=== PATIENT | female | born 1990 | race Caucasian/White ===

== ENCOUNTER 2020-01-01 12:56 | Emergency (ER) | payer OTHER, SELFPAY ==
[2020-01-01 13:08] VITALS: BP 158/92; PULSE 93; RESP 20; TEMP 36.6; O2SAT 100
--- NOTE | 2020-01-01 13:14 | ED.URI ---
HPI - URI/Sore Throat General Chief Complaint: Upper Respiratory Infection Stated Complaint: sore throat Time Seen by Provider: 01/01/20 12:57 Source: patient and RN notes reviewed Mode of arrival: ambulatory Limitations: clinical condition History of Present Illness HPI Narrative: The patient, who is a non-smoker/nondrinker dental tech, presents with sore throat. Patient states her child was treated symptomatically for pharyngitis with antibiotics recently; she now has a 2-day history of sore scratchy throat and rare cough. No fever measured, earache, loss of taste/smell, recent travel, wheeze/sneeze, N/V/D/dehydration; she is taking care of, patients have been released Related Data Allergies Allergy/AdvReac Type Severity Reaction Status Date / Time No Known Allergies Allergy Verified 01/01/20 13:01 Review of Systems Review of Systems: Narrative: The patient has been informed that they may have pre-hypertension or Hypertension based on a BP reading in the department. I recommend that the patient call the primary care provider listed on their discharge instructions or a physician of their choice this week to arrange follow up for further evaluation of possible pre-hypertension or Hypertension General/Constitutional: No weight loss,fever Eyes: N0: Redness,discharge Ears/Nose/Throat: No: Epistaxis,ear discharge Respiratory: Denies: Hemoptysis Gastrointestinal: No Vomiting, Bleeding-rectal Skin: No Lumps, eruption Neurologic: No Focal Weakness,Sz Hematologic: Denies: Petechiae/Purpura Psychiatric: No: Suicida ideationl All Other Systems: Reviewed and Negative PMFSH Social History Social History Gender identity (if verbalized by the patient): Female Comments At time of signature, agree with nursing past medical, surgical, social and family history. There is no relevant family history pertinent to the presenting complaint Exam Narrative: Exam Narrative: General Appearance: Well appearing, Well nourished EYE: PERRLA, Conjunctiva clear Ears: Auditory canal normal, TM normal Nose: Rhinorrhea, Mucousal erythema Mouth/Throat: MM moist, Uvula midline, Pharyngeal erythema Neck: Supple, No adenopathy Respiratory: No respiratory distress, Breath sounds equal, Clear to auscultation Cardiovascular: RRR, No JVD Musculoskeletal: Non tender, Normal strength Skin: Warm, Dry Neurological: A&O x3, CN II-XII intact Psychiatric: Normal mood, Normal affect Course Vital Signs Vital signs: Vital Signs Temperature 98 F 01/01/20 13:08 Pulse Rate 93 01/01/20 13:08 Respiratory Rate 20 01/01/20 13:08 Blood Pressure 158/92 H 01/01/20 13:08 Pulse Oximetry 100 01/01/20 13:08 Temperature 98 F 01/01/20 13:08 Pulse Rate 93 01/01/20 13:08 Respiratory Rate 20 01/01/20 13:08 Blood Pressure 158/92 H 01/01/20 13:08 Pulse Oximetry 100 01/01/20 13:08 MDM - URI/Sore Throat Lab Data Labs: Strep Screen Presumptive Negative *(Reference Range: Negative)* Discharge Plan Discharge Clinical Impression: Pharyngitis Qualifiers: Pharyngitis/tonsillitis etiology: unspecified etiology Qualified Code(s): J02.9 - Acute pharyngitis, unspecified Patient Disposition: Home, Self-Care Condition: Stable Instructions: Antibiotic Form Additional Instructions: Get COVID test tomorrow as prescribed You may return to work after 72 hours of your last fever [without fever meds] AND your symptoms have improved Prescriptions: New azithromycin 250 mg tablet See Rx Instructions .ROUTE .COMPLEX Qty: 6 RF: 0 Lidocaine Viscous 2 % solution 5 ml MUCOUS MEM QID PRN (Reason: pain) Qty: 100 RF: 0 Interventions: Discharge Disposition Last Done: 01/01/20 13:21 Follow-up/Referrals: UNKNOWN,DOCTOR [Primary Care Provider] - Discharge Date/Time: 01/01/20 13:29
--- NOTE | 2020-01-04 13:22 | PC.NURSE ---
Patient notified that Covid test was negative and that Strep culture was negative.
== END 2020-01-01 13:29 | disposition home or self-care (01) ==
PROVIDERS: Emergency Provider Emergency Medicine
DX: J02.9 Acute pharyngitis, unspecified (principal)
CPT/HCPCS: 87081; 87880; 99213; G0463

== ENCOUNTER 2021-06-28 08:01 | Outpatient (CLI) | payer BC, SELFPAY ==
--- NOTE | ~2021-06-28 | US_ITS ---
EXAMINATION: US abdomen complete EXAM DATE: 06/28/2021 08:37 INDICATION: periumbilical abd pain; bloating, TECHNIQUE: Multiple grayscale and Doppler images of the complete abdomen were obtained (by a technolo gist who performed the scan) and subsequently reviewed. There is no prior study for comparison. FINDINGS: The abdominal aorta is normal in caliber. Visualized portion IVC is patent. The pancreatic head a nd body are normal in appearance. The pancreatic tail is not visualized. There is echogenic liver parenchyma with poor penetration, hepatic steatosis. There are no focal jose a er lesions identified. There is no evidence of intrahepatic biliary duct dilation. Portal venous f low was seen in the hepatopedal, normal direction and has normal Doppler waveform. Common bile duct measures 4 mm, which is normal. The gallbladder wall is normal in thickness, with ex pected amount of distention. No sonographic evidence of pericholecystic fluid. There is no cholelit hiases. Technologist performing exam reports patient did not demonstrate sonographic Milan's sign. Please note that this sign is less reliable in patients who have received pain medication. Right kidney: There is normal contour and echogenicity. It measures 12.2 x 4.0 x 5.4 centimeters. There are no focal renal lesions identified. There is no hydronephrosis. Left kidney: There is normal contour and echogenicity. It measures 12.9 x 4.4 x 5.3 centimeters. T here are no focal renal lesions identified. There is no hydronephrosis. The spleen measures 12.4 centimeters and is morphologically normal. IMPRESSION: 1. Hepatic steatosis. Reviewed, dictated and finalized at location A. FIC REPORTER IMPRESSION: 1. Hepatic steatosis.
== END 2021-06-28 08:02 | disposition home or self-care (01) ==
LOC: ANHIMG 08:04
DX: R10.33 Periumbilical pain (principal); R14.0 Abdominal distension (gaseous); K76.0 Fatty (change of) liver, not elsewhere classified
CPT/HCPCS: 76700

== ENCOUNTER 2022-05-08 13:39 | Emergency (ER) | payer SELFPAY ==
[2022-05-08 13:55] VITALS: BP 136/97; PULSE 113; RESP 16; TEMP 36.9; O2SAT 100
--- NOTE | 2022-05-08 14:42 | ED.URI ---
HPI - URI/Sore Throat General Chief Complaint: Upper Respiratory Infection Stated Complaint: sore throat, SOB, productive cough, congestion Time Seen by Provider: 05/08/22 14:00 Source: patient Mode of arrival: ambulatory Limitations: no limitations History of Present Illness HPI Narrative: 31-year-old female presents with complaint of nasal congestion, sore throat, cough, fatigue for 4 days. Was seen at another urgent care with symptoms 1st started and had a negative influenza, strep and COVID test. Is concerned that swabs were wrong and she was tested to soon. Would like swabbed again. Afebrile. Taking [id number]-[id number] medications to treat her symptoms. Denies chest pain and shortness of breath. No nausea vomiting diarrhea. All systems reviewed and negative except as noted above. Related Data Allergies Allergy/AdvReac Type Severity Reaction Status Date / Time No Known Allergies Allergy Verified 05/08/22 13:54 Review of Systems Review of Systems: CONSTITUTIONAL: Denies fever, chills, or sweats. EYES: Denies visual changes, redness, or discharge. ENT: Reports rhinorrhea, congestion, sore throat,. Denies otalgia. CARDIOVASCULAR: Denies chest pain, palpitations, or edema. RESPIRATORY: Report cough. Denies dyspnea. GASTROINTESTINAL: Denies abdominal pain, nausea, vomiting, or diarrhea. GENITOURINARY: Denies dysuria or hematuria. SKIN: Denies rash or itching. MUSCULOSKELETAL: Denies back pain, joint pain, or myalgia. NEUROLOGIC: Denies headache, numbness, or weakness. PSYCHIATRIC: Denies anxiety or depression. All other systems reviewed are negative, except as documented in HPI. PMFSH Social History Social History Gender identity (if verbalized by the patient): Female Comments At time of signature, agree with nursing past medical, surgical, social and family history. There is no relevant family history pertinent to the presenting complaint. Exam Narrative: GENERAL: This is a well-nourished, well-developed patient, in no apparent distress. HEAD: normocephalic, atraumatic. EYES: PERRL. Sclera clear/white. Vision is grossly intact. EARS: External ears normal, auditory canals clear and without drainage, TMs normal without perforation. Hearing grossly intact. NOSE: External nose normal with clear nasal drainage, erythema to both nares. THROAT: Mucous membranes moist, erythema posterior pharynx with clear postnasal drainage. NECK: Neck supple, non-tender without lymphadenopathy, masses or thyromegaly. CARDIOVASCULAR: Regular rate and rhythm without murmurs, gallops, or rubs. RESPIRATORY: Clear to auscultation. Breath sounds equal bilaterally. No wheezes, rales, or rhonchi. SKIN: warm, Dry, intact with no suspicious lesions or rash, good texture and turgor. NEURO: awake, alert, and oriented to person, place and time. There were no obvious focal neurologic abnormalities. EXTREMITIES: No joint tenderness, effusion, or edema noted. Course Course Level of Care: Express Care Visit Vital Signs Vital signs: Vital Signs Temperature 36.9 C 05/08/22 13:55 Pulse Rate 113 H 05/08/22 13:55 Respiratory Rate 16 05/08/22 13:55 Blood Pressure 136/97 H 05/08/22 13:55 Pulse Oximetry 100 05/08/22 13:55 Oxygen Delivery Room Air 05/08/22 13:55 Temperature 36.9 C 05/08/22 13:55 Pulse Rate 113 H 05/08/22 13:55 Respiratory Rate 16 05/08/22 13:55 Blood Pressure 136/97 H 05/08/22 13:55 Pulse Oximetry 100 05/08/22 13:55 Oxygen Delivery Room Air 05/08/22 13:55 Reviewed MDM - URI/Sore Throat MDM Narrative Medical decision making narrative: Patient is aware of diagnosis, understands and agrees to treatment plan. Anticipatory guidance given. Patient agrees to follow-up as directed and is aware of reasons to seek care at the emergency department. Portions of this record may have been created with voice recognition software Differential Diagnosis Differential diagnosis: Likely upper respirat
== END 2022-05-08 14:50 | disposition home or self-care (01) ==
PROVIDERS: Emergency Provider Nurse Practitioner Family
DX: J06.9 Acute upper respiratory infection, unspecified (principal); Z20.822 Contact with and (suspected) exposure to COVID-19
CPT/HCPCS: 87081; 87426; 87880; 99213; C9803; G0463

== ENCOUNTER 2022-07-18 16:27 | Emergency (ER) | payer SELFPAY ==
[2022-07-18 16:37] VITALS: BP 128/90; PULSE 101; RESP 16; TEMP 36.7; O2SAT 98
--- NOTE | 2022-07-18 16:50 | ED.ABDPAIN ---
HPI - Abdominal Pain General Chief Complaint: Abdominal Pain Stated Complaint: PAIN IN SIDES Time Seen by Provider: 07/18/22 16:51 Source: patient, RN notes reviewed and old records reviewed Mode of arrival: ambulatory Limitations: no limitations History of Present Illness HPI narrative: 32-year-old female who presents to [facility] with complaints of bilateral discomfort to both sides of abdomen since Thursday,previous bilateral flank pain a few days prior now has moved to the front of abdomen.Patient reports that she has some frequency and urgency with urination and voiding in small amounts. Patient reports that she has some inflamed feeling in perineal area but no burning with urination.Patient denies any vaginal discharge or any itching.Patient states that she was diagnosed with diabetes in June and is on metformin but does not check sugars daily, shows 2+ glucose in urine dip. MD elicited complaint: abdominal pain and other (frequent voiding ) Pertinent past history: other (PCOS, diabetes) Onset (ago): day(s) (4 days of various symptoms) Related Data Home Medications Medication Instructions Recorded Confirmed esomeprazole magnesium 20 mg 20 mg PO DAILY 07/18/22 07/18/22 capsule,delayed release (Nexium) metformin 500 mg tablet,extended 2 mg PO BID 07/18/22 07/18/22 release 24 hr Allergies Allergy/AdvReac Type Severity Reaction Status Date / Time No Known Allergies Allergy Verified 07/18/22 16:34 Review of Systems Review of Systems: CONSTITUTIONAL: Denies fever, chills, or sweats. EYES: Denies visual changes, redness, or discharge. ENT: Denies rhinorrhea, congestion, sore throat, or otalgia. CARDIOVASCULAR: Denies chest pain, palpitations, or edema. RESPIRATORY: Denies cough or dyspnea. GASTROINTESTINAL: bilateral sides of abdominal pain,no nausea, vomiting, or diarrhea. GENITOURINARY: Denies dysuria or hematuria. some urgency, frequency of urination, voiding in small amounts,no flank pain, Denies vaginal discharge or itching. SKIN: Denies rash or itching. MUSCULOSKELETAL: Denies back pain, joint pain, or myalgia. NEUROLOGIC: Denies headache, numbness, or weakness. PSYCHIATRIC: Denies anxiety or depression. All systems reviewed & are unremarkable except as noted in HPI and below PMFSH Past Medical History Medical History (Updated 07/19/22 @ 10:42 by Lashon Modi NP) Breast abscess Diabetes GERD (gastroesophageal reflux disease) History of PCOS Surgical History Surgical History (Updated 07/19/22 @ 10:19 by Lashon Modi NP) History of hysteroscopy Previous section x2 Social History Social History (Updated 07/19/22 @ 10:20 by Lashon Modi NP) Smoking status: Never smoker Alcohol intake: unknown Substance use: never Living arrangements: with family Gender identity (if verbalized by the patient): Female Comments At time of signature, agree with nursing past medical, surgical, social and family history. There is no relevant family history pertinent to the presenting complaint Exam Narrative: GENERAL: Well-appearing, well-nourished, and in no acute distress. HEAD: Normocephalic, atraumatic. EYES: PERRLA and EOMI. ENT: Nares clear, no rhinorrhea or epistaxis. Mucous membranes moist.TM's normal with good light reflex, throat pink with no lesions or swelling NECK: Supple.no lymphadenopathy CHEST: Clear to auscultation. No respiratory distress.SAO2 98% on room air HEART: Regular rate and rhythm. No murmur heard. Normal peripheral pulses. ABDOMEN: Soft, nontender to palpation, no McBurney point tenderness, nondistended, normal active bowel sounds, reports lower abdominal discomfort mid lateral aspects bilaterally no suprapubic pain EXTREMITIES: Normal range of motion. No edema. SKIN: Warm, dry, no rash. NEURO: No focal deficits. Alert and oriented x3. Course Course Emergency Course: Patient is aware of diagnosis, understands and agrees to treatment plan.?
== END 2022-07-18 17:18 | disposition home or self-care (01) ==
PROVIDERS: Emergency Provider Registered Nurse
DX: R10.9 Unspecified abdominal pain (principal); E28.2 Polycystic ovarian syndrome; R35.0 Frequency of micturition; R39.15 Urgency of urination; E11.9 Type 2 diabetes mellitus without complications; Z79.84 Long term (current) use of oral hypoglycemic drugs
CPT/HCPCS: 81003; 99213; G0463

== ENCOUNTER 2022-08-05 18:41 | Emergency (ER) | payer SELFPAY ==
[2022-08-05 18:56] VITALS: BP 142/92; PULSE 95; RESP 16; TEMP 36.4; O2SAT 100
--- NOTE | 2022-08-05 19:14 | ED.URI ---
HPI - URI/Sore Throat General Chief Complaint: Upper Respiratory Infection Stated Complaint: sorethroat,congestion Time Seen by Provider: 08/05/22 19:05 Source: patient Mode of arrival: ambulatory Limitations: no limitations History of Present Illness HPI Narrative: Patient is a 32 old male who presents with negative congestion, sore throat, runny nose the since yesterday evening. States throughout the day sore throat has worsened. Denies any headache, fever, cough. Related Data Home Medications Medication Instructions Recorded Confirmed esomeprazole magnesium 20 mg 20 mg PO DAILY 07/18/22 07/18/22 capsule,delayed release (Nexium) metformin 500 mg tablet,extended 2 mg PO BID 07/18/22 07/18/22 release 24 hr Allergies Allergy/AdvReac Type Severity Reaction Status Date / Time No Known Allergies Allergy Verified 07/18/22 16:34 Review of Systems Review of Systems: All systems reviewed & are unremarkable except as noted in HPI and below Constitutional: Constitutional: Denies body ache(s), Denies fever(s), Denies headache(s), Denies malaise and Denies weakness Eyes: Eyes: Reports no additional eye complaints and Denies loss of vision ENT: Reports system reviewed and no additional complaints, except as documented, Denies otalgia, Denies headache(s), Reports nasal congestion, Denies sinus pain and Reports sore throat Cardiovascular: Cardiovascular: Reports no additional cardiovascular complaints, Denies chest pain, Denies irregular heart rhythm and Denies dyspnea Respiratory: Respiratory: Reports no additional respiratory complaints, Denies cough and Denies dyspnea Gastrointestinal: Gastrointestinal: Reports no additional gastrointestinal complaints, Denies abdominal pain, Denies melena, Denies hematochezia, Denies diarrhea, Denies nausea and Denies vomiting Musculoskeletal: Musculoskeletal: Reports no additional musculoskeletal complaints, Denies back pain, Denies myalgias and Denies arthralgias Integumentary/Breasts: Skin/Breast: Reports system reviewed and no additional complaints, except as docu, Denies pruritus and Denies rash Neurologic: Reports system reviewed and no additional complaints, except as documented, Denies headache(s), Denies loss of vision and Denies weakness Psychiatric: Psychiatric: Reports no additional psychiatric complaints PMFSH Past Medical History Medical History (Updated 08/05/22 @ 19:16 by Danna N. Cosmas, ELECTRICIAN MASTER) Breast abscess Diabetes GERD (gastroesophageal reflux disease) History of PCOS Surgical History Surgical History (Updated 07/19/22 @ 10:19 by Lashon Modi NP) History of hysteroscopy Previous section x2 Social History Social History (Updated 07/19/22 @ 10:20 by Lashon Modi NP) Smoking status: Never smoker Alcohol intake: unknown Substance use: never Living arrangements: with family Gender identity (if verbalized by the patient): Female Comments At time of signature, agree with nursing past medical, surgical, social and family history. There is no relevant family history pertinent to the presenting complaint. Exam Const: General: cooperative, healthy appearing, comfortable, no acute distress and well nourished Nutritional Appearance: well nourished Orientation/consciousness: patient oriented x3 Limitations: no limitations HENMT: Head: normal to inspection, normocephalic and atraumatic Ears: external ears normal and TM's normal bilaterally Face/Nose/Sinus: Normal external nose present, Abnormal mucous membranes and turbinates present erythematous, Nasal discharge present clear, normal facial exam, sinuses nontender and face symmetric Face and sinus: normal facial exam, sinuses nontender and face symmetric Mouth: Yes Normal oral and palatal mucosa present, Yes lip normal and Yes moist mucous membranes Teeth and gingiva: dentition normal Throat: posterior oropharynx normal, uvula midline, abnormal tonsil bilateral erythema and
== END 2022-08-05 19:20 | disposition home or self-care (01) ==
PROVIDERS: Emergency Provider Nurse Practitioner Family
DX: J06.9 Acute upper respiratory infection, unspecified (principal); E11.9 Type 2 diabetes mellitus without complications
CPT/HCPCS: 87081; 87880; 99213; G0463

== ENCOUNTER 2023-04-28 17:12 | Emergency (ER) | payer OTHER, SELFPAY ==
--- NOTE | 2023-04-28 17:35 | ED.URI ---
HPI - URI/Sore Throat General Chief Complaint: Upper Respiratory Infection Stated Complaint: SORE THROAT/EARACHE/VOMITING History of Present Illness HPI Narrative: 32 y/o female presented for c/o sore throat, ear pain, vomiting x2 days. Reports daughter with similar symptoms. Denies sob, wheezing, lethargy or fever. Not taking anything for symptoms. Related Data Home Medications Medication Instructions Recorded Confirmed No Home Medications 04/28/23 04/28/23 Allergies Allergy/AdvReac Type Severity Reaction Status Date / Time No Known Allergies Allergy Verified 07/18/22 16:34 Review of Systems Review of Systems: CONSTITUTIONAL: Denies body aches, fever, chills, or sweats. EYES: Denies visual changes, redness, or discharge. ENT: Reports rhinorrhea, congestion, otalgia. CARDIOVASCULAR: Denies chest pain, palpitations, or edema. RESPIRATORY: Denies dyspnea. GASTROINTESTINAL: Reports nausea, vomiting Denies abdominal pain or diarrhea. SKIN: Denies rash, itching, or wounds. MUSCULOSKELETAL: Denies back pain, joint pain, or myalgia. NEUROLOGIC: Denies headache PMFSH Past Medical History Medical History Breast abscess Diabetes GERD (gastroesophageal reflux disease) History of PCOS Surgical History Surgical History History of hysteroscopy Previous section x2 Social History Social History Smoking status: Never smoker Alcohol intake: unknown Substance use: never Living arrangements: with family Gender identity (if verbalized by the patient): Female Exam Narrative: GENERAL: well-appearing, no acute distress. EYES: conjunctivae clear ENT: Mucous membranes moist. TMs pearly molina with normal light reflex bilaterally; no tragal tenderness. Oropharynx erythematous without lesions. Tonsils enlarged 1+ and without exudate. No drooling, no hoarseness, no trismus, uvula midline. No tripod positioning, hot potato voice, or soft palate swelling. NECK: Supple. No lymphadenopathy CHEST: Clear to auscultation, breath sounds equal. No respiratory distress, speaks in full sentences. HEART: Regular rate and rhythm. No murmur heard. SKIN: Warm, dry, no rash. NEURO: Alert and oriented x3. Course Course Emergency Course: Patient is aware of diagnosis, understands and agrees to treatment plan. Anticipatory guidance given. Patient agrees to follow-up as directed and is aware of reasons to seek care at the emergency department. Portions of this record may have been created with voice recognition software Level of Care: Express Care Visit Vital Signs Vital signs: Vital Signs Temperature 98 F 04/28/23 17:41 Pulse Rate 90 04/28/23 17:41 Respiratory Rate 16 04/28/23 17:41 Blood Pressure 130/96 H 04/28/23 17:41 Pulse Oximetry 99 04/28/23 17:41 Temperature 98 F 04/28/23 17:41 Pulse Rate 90 04/28/23 17:41 Respiratory Rate 16 04/28/23 17:41 Blood Pressure 130/96 H 04/28/23 17:41 Pulse Oximetry 99 04/28/23 17:41 MDM - URI/Sore Throat MDM Narrative Medical decision making narrative: Neg strep covid and flu result reviewed with pt. Advise supportive treatments. Patient is appropriate for outpatient treatment and follow-up. Differential Diagnosis Differential diagnosis: Likely upper respiratory infection, otitis media, sinusitis, viral infection, influenza and pharyngitis Lab Data Labs: Strep Screen Presumptive Negative *(Reference Range: Negative)* Discharge Plan Discharge Clinical Impression: Viral infection Patient Disposition: Home, Self-Care Condition: Stable Instructions: Antibiotic Form, Upper Respiratory Infection (ED) Additional Instructions: Covid and flu negative Rapid strep swab was negativ
[2023-04-28 17:41] VITALS: BP 130/96; PULSE 90; RESP 16; TEMP 36.6; O2SAT 99
== END 2023-04-28 18:13 | disposition home or self-care (01) ==
PROVIDERS: Emergency Provider Nurse Practitioner Family; PCP Internal Medicine
DX: B34.9 Viral infection, unspecified (principal); Z20.822 Contact with and (suspected) exposure to COVID-19; E11.9 Type 2 diabetes mellitus without complications; K21.9 Gastro-esophageal reflux disease without esophagitis; E28.2 Polycystic ovarian syndrome
CPT/HCPCS: 87081; 87426; 87804; 87880; 99213; C9803; G0463

== ENCOUNTER 2023-10-29 19:20 | Emergency (ER) | payer OTHER, SELFPAY ==
--- NOTE | ~2023-10-29 | US_ITS ---
EXAMINATION: US OB transvaginal DATE: 10/29/2023 21:08 INDICATION: abdominal pain, eval for ectopic TECHNIQUE: Multiple transabdominal and endovaginal sonographic images of the pelvis were obtained. COMPARISON: None. FINDINGS: Uterus: 8.6 x 4.7 x 6.4 cm. Endometrial complex is irregularly thickened, measuring 21 mm, with incre ased vascular flow. Right Ovary: 3.0 x 1.7 x 2.0 cm. Vascular flow is present. No adnexal mass. Left Ovary: 4.6 x 2.6 x 3.6 cm. Vascular flow is present. 2.6 and 2.3 cm simple cysts. There is no free fluid in the pelvis. IMPRESSION: Positive test with no intrauterine gestational sac visualized. Findings represent pregnanc y of unknown location. Differential diagnosis includes early normal, failed early, or ectopic . Failed early pregna ncy is favored. Thickened irregular endometrium with increased vascularity, retained products should remain in the di fferential. Recommend follow-up serial beta-hCG values and pelvic ultrasound. Reviewed, dictated and finalized at location [facility]. IMPRESSION: Positive test with no intrauterine gestational sac visualized. Findi ngs represent of unknown location. Differential diagnosis includes early normal, failed early, or ectopic pregnanc y. Failed early is favored. Thickened irregular endometrium with increased vascularity, retained products s hould remain in the differential. Recommend follow-up serial beta-hCG values and pelvic ultrasound.
[2023-10-29 19:26] VITALS: BP 150/88; PULSE 112; RESP 18; TEMP 36.8; O2SAT 98
[2023-10-29 19:52] LABS: Basophils Absolute Auto 0.1 K/mm3 (0.0-0.1); Basophils Percent Auto 0.7 % (0.2-1.2); Eosinophils Absolute Auto 0.3 K/mm3 (0-0.3); Eosinophils Percent Auto 2.6 % (0-4.4); Hematocrit 35.4 % (37.0-47.0); Hemoglobin 11.5 g/dL (12.0-15.0); Immature Granulocyte Absolute 0.04 K/mm3 (0.00-0.031); Immature Granulocyte Percent A 0.4 % (0-0.5); Lymphocytes Percent Auto 34.7 % (18.3-44.2); Mean Corpuscular HGB Conc 32.5 g/dl (32-36); Mean Corpuscular Hemoglobin 27.2 pg (26-34); Mean Corpuscular Volume 83.7 fl (80-100); Mean Platelet Volume 9.9 fl (7.4-10.4); Monocytes Absolute Auto 0.9 K/mm3 (0.1-0.6); Neutrophils Absolute Auto 5.5 K/mm3 (1.3-6.7); Neutrophils Percent Auto 52.6 % (45.5-73.1); Platelet Count Result 328 k/mm3 (150-375); Red Blood Count 4.23 M/mm3 (4.2-5.4); Red Cell Distribution Width 16.1 % (11.5-14.5); White Blood Count 10.4 K/mm3 (4.5-10.0)
[2023-10-29 19:59] LABS: Appearance Urine Clear (Clear); Bacteria Urine 1+ /hpf; Bilirubin Urine Negative (Negative); Blood Urine Negative (Negative); Color Urine Yellow (Yellow); Glucose Urine UA Negative (Negative); Ketones Urine Trace mg/dL (Negative); Leukocyte Esterase Ur 1+ LEU/UL (Negative); Nitrate Urine Negative (Negative); Non Pathogenic Casts 0-2; Protein Urine Trace mg/dL (Negative); Specific Grav Ur 1.027 (1.001-1.035); Squamous Epithelial Cell Urine Few /hpf (Few)
[2023-10-29 20:02] LABS: Add Urine Microscopic? YES
[2023-10-29 20:03] LABS: Alanine Aminotransferase 19 U/L (6-35); Albumin Level 4.3 g/dL (3.5-5.1); Alkaline Phosphatase 60 U/L (38-126); Anion Gap 6 mmol/L (4-12); Aspartate Amino Transferase 20 U/L (14-36); Bilirubin,Total 0.5 mg/dL (0.2-1.3); Blood Urea Nitrogen 6 mg/dL (7-17); Carbon Dioxide 26 mmol/L (22-30); Chloride 104 mmol/L (98-107); Estimated CRCL calculation 138 ml/min; Estimated Glomerular Filt Rate > 60; Glucose 156 mg/dL (65-110); Lipase 52 U/L (23-300); Potassium 3.9 mmol/L (3.4-5.0); Sodium 136 mmol/L (137-145)
--- NOTE | 2023-10-29 20:08 | ED.GENADULT ---
HPI - General Adult General Chief complaint: Abdominal Pain Stated complaint: abd pain Time Seen by Provider: 10/29/23 19:42 History of Present Illness HPI narrative: the patient 33-year-old female who presents emergency department chief complaint of abdominal pain. Patient reports that she has had an IU I and is followed by fertility specialist. Patient states that she has been followed with serial HCGs and had ultrasound done in the office by the provider and they have been unable to determine if there is intrauterine the patient reports that they were talking about potentially doing methotrexate for possible ectopic the patient states she is not ready to do that yet the patient states that today she decided to come to the emergency department patient does she was still having discomfort patient is scheduled to see her fertility specialist in the next 24-48 hours Related Data Home Medications Medication Instructions Recorded Confirmed No Home Medications 04/28/23 04/28/23 Allergies Allergy/AdvReac Type Severity Reaction Status Date / Time No Known Allergies Allergy Verified 07/18/22 16:34 Review of Systems Review of Systems: A 10 system review of systems was completed on the patient and is negative except for what is stated in the HPI. Nursing and ancillary documentation was reviewed. [facility] Past Medical History Medical History Breast abscess Diabetes GERD (gastroesophageal reflux disease) History of PCOS Surgical History Surgical History History of hysteroscopy Previous section x2 Social History Social History Smoking status: Never smoker Alcohol intake: unknown Substance use: never Living arrangements: with family Gender identity (if verbalized by the patient): Female Exam Narrative: GENERAL: Well-appearing, well-nourished, and in no acute distress. HEAD: Normocephalic, atraumatic. EYES: PERRLA and EOMI. ENT: Nares clear, no rhinorrhea or epistaxis. Mucous membranes moist. NECK: Supple. CHEST: Clear to auscultation. No respiratory distress. HEART: Regular rate and rhythm. No murmur heard. Normal peripheral pulses. ABDOMEN: Soft, nontender, nondistended, normal active bowel sounds. EXTREMITIES: Normal range of motion. No edema. SKIN: Warm, dry, no rash. NEURO: No focal deficits. Alert and oriented x3. PSYCH: Normal mood and affect. Course Vital Signs Vital signs: Vital Signs Temperature 36.8 C 10/29/23 19:26 Pulse Rate 112 H 10/29/23 19:26 Respiratory Rate 18 10/29/23 19:26 Blood Pressure 150/88 H 10/29/23 19:26 Pulse Oximetry 98 10/29/23 19:26 Oxygen Delivery Room Air 10/29/23 19:26 Temperature 36.8 C 10/29/23 19:26 Pulse Rate 112 H 10/29/23 19:26 Respiratory Rate 18 10/29/23 19:26 Blood Pressure 150/88 H 10/29/23 19:26 Pulse Oximetry 98 10/29/23 19:26 Oxygen Delivery Room Air 10/29/23 19:26 Medical Decision Making MDM Narrative Medical decision making narrative: differential diagnosis includes threatened miscarriage, ectopic , failed , missed , incomplete vital signs were stable CBC showed a white count of 10.4 hemoglobin is 11.5 electrolytes showed a potassium of 3.9 BUN and creatinine were within normal limits liver enzymes are normal lipase was normal beta hCG was 1045.9 urinalysis showed 6-10 white blood cells in the urine ultrasound was performed that showed IMPRESSION: Positive test with no intrauterine gestational sac visualized.? Findings represent of unknown location. Differential diagnosis includes early normal, failed early, or ectopic . Failed early is favored. Thickened irregular endometrium with increased vascularity
== END 2023-10-29 22:47 | disposition home or self-care (01) ==
PROVIDERS: Physician Assistant; Emergency Provider Emergency Medicine; PCP Internal Medicine
DX: R10.9 Unspecified abdominal pain (principal); O99.281 Endocrine, nutritional and metabolic diseases complicating pregnancy, first trimester; E28.2 Polycystic ovarian syndrome; O24.911 Unspecified diabetes mellitus in pregnancy, first trimester; O99.611 Diseases of the digestive system complicating pregnancy, first trimester; K21.9 Gastro-esophageal reflux disease without esophagitis; Z3A.01 Less than 8 weeks gestation of pregnancy
CPT/HCPCS: 36415; 76817; 80053; 81001; 81025; 83690; 84702; 85025; 87086; 99284